=== PATIENT | female | born 1980 | race Caucasian/White ===

== ENCOUNTER 2020-05-28 08:24 | Emergency (ER) | payer SELFPAY ==
[2020-05-28 08:29] VITALS: BP 125/82; PULSE 87; RESP 18; TEMP 36.9; O2SAT 99; BMI 23.0
[2020-05-28 08:46] VITALS: PULSE 90; RESP 19; O2SAT 98
--- NOTE | 2020-05-28 08:46 | CTR_ITS ---
PROCEDURE INFORMATION: Exam: CT Abdomen And Pelvis Without Contrast Exam date and time: 05/28/2020 8:51 AM Age: 39 years old Clinical indication: Abdominal pain; Flank; Right; Additional info: Right flank pain, UTI TECHNIQUE: Imaging protocol: Computed tomography of the abdomen and pelvis without contrast. Radiation optimization: All CT scans at this facility use at least one of these dose optimization techniques: automated exposure control; mA and/or kV adjustment per patient size (includes targeted exams where dose is matched to clinical indication); or iterative reconstruction. COMPARISON: No relevant prior studies available. RADIATION DOSE METRICS: Total DLP (mGy-cm): 785.28 FINDINGS: Lungs: No acute findings within the included lung bases. Liver: The liver is enlarged, right lobe measuring approximately 23 cm in craniocaudad length. Smooth contours. Gallbladder and bile ducts: Normal. No calcified stones. No ductal dilation. Pancreas: Normal. No ductal dilation. Spleen: Splenomegaly, measuring 14.6 cm in AP diameter. Adrenal glands: Normal. No mass. Kidneys and ureters: 9 mm calculus at the right UVJ causing moderate to severe hydroureteronephrosis with stranding. Bilateral scattered punctate renal calculi. 20 mm fluid density cortical lesion at the left lateral midpole compatible with cyst though not further characterized without contrast. Stomach and bowel: Normal. No obstruction. No inflammatory changes appreciated. Appendix: No evidence of appendicitis. Intraperitoneal space: No free air. No significant fluid collection. Vasculature: No abdominal aortic aneurysm. Lymph nodes: Unremarkable. No enlarged lymph nodes. Urinary bladder: Bladder partially filled with mild circumferential wall thickening. No calculi within the bladder lumen. Reproductive: Unremarkable as visualized. Bones/joints: No acute or aggressive osseous lesion. Soft tissues: Unremarkable. CT/CT kidney stone [id number] IMPRESSION: 1. 9 mm obstructing distal right ureteral calculus at the UVJ causing moderate to severe hydroureteronephrosis with stranding. 2. Bilateral punctate intrarenal calculi. 3. Incidental 2 cm fluid density left renal lesion compatible with cyst though not further characterized without contrast. 4. Incidental note of hepatosplenomegaly, correlate clinically. Radiation Dose CTDIVOL = (mGy): DLP = 785.28 (mGy-cm)
--- NOTE | 2020-05-28 08:47 | W.ED.FEMALGU ---
HPI - Female Genitourinary General: Chief complaint: Urogenital-Female Stated complaint: Back Pain? Possible Kidney stone Time Seen by Provider: 05/28/20 08:27 History of Present Illness: HPI Narrative: Patient complains about right flank pain for the last 3 days. Did see primary care provider yesterday and diagnosed with a UTI and placed on Bactrim. Patient is been nauseated has had fever and chills just does not feel right she says. Had vaginal delivery 3 months ago. MD elicited complaint: dysuria and flank pain Onset (ago): day(s) Location of symptoms: flank Severity: moderate Female Urogenital Radiation: R Flank Severity scale (1-10): 3 Quality of pain: dull Consistency: constant Vaginal discharge: none Urinary symptoms: Flank Pain, Frequency and Hematuria Exacerbating factors: none Relieving factors: none Associated symptoms: Reports fevers/chills and nausea; Deny headache(s) Treatment prior to arrival: other (Bactrim) Review of Systems Const: Reports: malaise; Denies: fever(s), chills or body aches Eyes: Denies: change in vision or blurry vision ENMT: Denies: throat pain or nasal congestion Card: Denies: chest pain or dyspnea on exertion Resp: Denies: dyspnea, productive cough or non-productive cough GI: Reports: nausea : Reports: flank pain, urinary frequency and urinary urgency Musc: Denies: extremity pain Skin/Breast: Denies: rash Neuro: Denies: headache(s) Psych: Denies: anxiety or depression Adam/Lymph: Denies: easy bruising Physical Exam Const: COMMON NORMALS: no acute distress, average body habitus and patient oriented x3 HENMT: COMMON NORMALS: normocephalic HEAD & SCALP: normal to inspection and normocephalic FACE & SINUS: normal facial exam Eye: COMMON NORMALS: conjunctivae normal GENERAL EYE: appearance normal, both eyes and all related structures CONJUNCTIVA: Yes conjunctivae normal Neck/C-Spine: COMMON NORMALS: no JVD Chest: COMMONS NORMALS: normal inspection of the chest Resp: COMMON NORMALS: normal respiratory effort and clear to auscultation bilaterally AUSCULTATION: clear to auscultation bilaterally Cardio: COMMON NORMALS: no JVD, regular rate and regular rhythm RATE: regular rate RHYTHM: regular rhythm GI: COMMON NORMALS: Normal to inspection, nondistended, normoactive bowel sounds present : BLADDER/KIDNEY EXAM: Yes CVA tenderness on the right Back/Pelvis: GENERAL BACK: Yes CVA tenderness Extremity: COMMON NORMALS: normal to inspection and full ROM Neuro: COMMON NORMALS: patient oriented x3 Course Vital Signs: Vital signs: Vital Signs Temperature 98.5 F 05/28/20 08:29 Pulse Rate 75 05/28/20 10:30 Respiratory Rate 18 05/28/20 10:30 Blood Pressure 116/74 05/28/20 10:30 Pulse Oximetry 98 05/28/20 10:30 MDM - Female MDM Narrative: Medical decision making narrative: Have visit with Dr. Franco about lab results radiology results. Recommend and talk to urologist. Dr. South her local urologist town. Patient has been seen by Dr. Melendrez in [place] for kidney stone about 3 years ago. Called [facility] they are unwilling to talk to us unless patient is transferred ER to ER. Patient not willing go to the ER because of cost. Patient already scheduled appoint with Dr. Melendrez's office and has appointment at [phone] on Saturday. Discussed case with Dr. White. Dr. Franco was not available, agreed with plan based on patient's lab result presentation and treatment and response to treatment that it would be safe to have patient follow-up on Saturday with urologist in [place]. Patient is aware that they can follow back up here today or tomorrow if worsening symptoms or go to the ER [place]. Imaging studies will be sent with patient to present to the urologist on Saturday. Lab Data: Labs: Lab Results 05/28/20 05/28/20 05/28/20 Range/Units 08:53 08:58 08:58 WBC 9.8 (4.0-10.0) 10^3/ uL RBC 4.07 L (4.1-5.3) 10^6/u L Hgb 12.8 (11.5-15.3) g/dL Hct 37.3 (37.0-47.0) % MCV 91.6 (81-99) fL MCH 31.4 (28.0-34.0) pg MCHC 34.3 (30.0-36.0) g/dL RDW 12.1 (12.1-15.1) % Plt Count 205 (130-400) 10^3/c mm MPV 10.0 (7.4-10.4) fL Neut % (Auto) 86.6 % Lymph % (Auto) 7.1 % [place] % (Auto) 5.3 % Eos % (Auto) 0.3 % Baso % (Auto) 0.4 % Neut # (Auto) 8.46 H (1.8-7.7) 10^3/u L Lymph # (Auto) 0.7 L (0.8-4.8) 10^3/u L [place] # (Auto) 0.5 (0.2-0.9) 10^3/u L Eos # (Auto) 0.0 (0.0-0.8) 10^3/u L Baso # (Auto) 0.0 (0.0-0.1) 10^3/u L Nucleated RBC % (a uto) 0 % Nucleated RBCs # 0.0 /100WBC Sodium 132 L (136-145) mmol/L Potassium 4.4 (3.5-5.1) mmol/L Chloride 93 L (98-107) mmol/L Carbon Dioxide 25 (22-29) mmol/L Anion Gap 18.4 (5-19) BUN 9 (6-20) mg/dL Creatinine 0.5 (0.5-0.9) mg/dL GFR Calculation 136.6 H (90-130) mL/min Glucose 122 H (65-115) mg/dL Calculated Osmolal ity 274 L (285-295) mOsm/k g Lactate (0.5-2.2) mmol/L Calcium 9.7 (8.5-10.5) mg/dL Total Bilirubin 0.4 (0.15-1.2) mg/dL AST 14 (0-32) U/L ALT 18 (0-33) U/L Alkaline Phosphata se 47 (35-105) IU/L Total Protein 7.8 (6.6-8.7) g/dL Albumin 4.3 (3.5-5.2) g/dL Globulin 3.5 (1.3-4.6) g/dL Lipase 23 (13-60) U/L HCG, Qual (Negative) Urine Color Yellow (Yellow) Urine Appearance Clear (CLEAR) Urine pH 7 (5-7) Ur Specific Gravit y 1.010 (1.005-1.030) Urine Protein Neg (Negative) Urine Glucose (UA) Norm (Normal) Urine Ketones Negative (Negative) Urine Blood 2+ H (Negative) Urine Nitrate Negative (Negative) Urine Bilirubin Neg (Negative) Urine Urobilinogen Norm (Negative) mg/dL Ur Leukocyte Winsome ase Negative (Negative) Urine RBC 5-10 H (0-2) /hpf Urine WBC 0-4 H (0-5) /hpf Ur Squamous Epith Cells 0-4 H (0-5) /hpf Amorphous Sediment Not Reportable Urine Bacteria 1+ H (NONE) /hpf Urine Mucus 1+ /hpf 05/28/20 05/28/20 Range/Units 08:58 08:58 WBC (4.0-10.0) 10^3/ uL RBC (4.1-5.3) 10^6/u L Hgb (11.5-15.3) g/dL Hct (37.0-47.0) % MCV (81-99) fL MCH (28.0-34.0) pg MCHC (30.0-36.0) g/dL RDW (12.1-15.1) % Plt Count (130-400) 10^3/c mm MPV (7.4-10.4) fL Neut % (Auto) % Lymph % (Auto) % [place] % (Auto) % Eos % (Auto) % Baso % (Auto) % Neut # (Auto) (1.8-7.7) 10^3/u L Lymph # (Auto) (0.8-4.8) 10^3/u L [place] # (Auto) (0.2-0.9) 10^3/u L Eos # (Auto) (0.0-0.8) 10^3/u L Baso # (Auto) (0.0-0.1) 10^3/u L Nucleated RBC % (a uto) % Nucleated RBCs # /100WBC Sodium (136-145) mmol/L Potassium (3.5-5.1) mmol/L Chloride (98-107) mmol/L Carbon Dioxide (22-29) mmol/L Anion Gap (5-19) BUN (6-20) mg/dL Creatinine (0.5-0.9) mg/dL GFR Calculation (90-130) mL/min Glucose (65-115) mg/dL Calculated Osmolal ity (285-295) mOsm/k g Lactate 2.7 H (0.5-2.2) mmol/L Calcium (8.5-10.5) mg/dL Total Bilirubin (0.15-1.2) mg/dL AST (0-32) U/L ALT (0-33) U/L Alkaline Phosphata se (35-105) IU/L Total Protein (6.6-8.7) g/dL Albumin (3.5-5.2) g/dL Globulin (1.3-4.6) g/dL Lipase (13-60) U/L HCG, Qual Negative (Negative) Urine Color (Yellow) Urine Appearance (CLEAR) Urine pH (5-7) Ur Specific Gravit y (1.005-1.030) Urine Protein (Negative) Urine Glucose (UA) (Normal) Urine Ketones (Negative) Urine Blood (Negative) Urine Nitrate (Negative) Urine Bilirubin (Negative) Urine Urobilinogen (Negative) mg/dL Ur Leukocyte Winsome ase (Negative) Urine RBC (0-2) /hpf Urine WBC (0-5) /hpf Ur Squamous Epith Cells (0-5) /hpf Amorphous Sediment Urine Bacteria (NONE) /hpf Urine Mucus /hpf Discharge Plan Discharge Patient Disposition: Home Clinical Impression: Calculus of ureterovesical junction (UVJ) Condition: Stable Prescriptions: New hydrocodone-acetaminophen 5-325 mg tablet 1 tab PO TID PRN (Reason: pain) Qty: 14 RF: 0 Macrobid 100 mg capsule 100 mg PO BID 7 Days Qty: 14 RF: 0 Zofran 4 mg tablet 4 mg PO Q8H 3 Days Qty: 9 RF: 0 No Action Tylenol 325 mg Tablet 325 mg PO QID PRN (Reason: Pain) RF: 0 Bactrim 1 tab PO .COMPELX RF: 0 Bone Restorer Calcium 1 tab PO DAILY RF: 0 Momma Bear 1 tab PO DAILY RF: 0 Discharge Orders: Discharge ED (Routine); Ordered 05/28/20 Ordered By: Isaias Dukes Discharge Diet: Advance as tolerated Discharge Activity: Increase activity as tolerated Patient Instructions: Kidney Stones (ED), Opioid Safety Activity Restrictions/Additional Instructions: Follow-up with medical provider as directed. Take medications as prescribed. Return to the ER or your medical provider if condition worsens. Please read and understand discharge instructions. If any questions ask please. Keep appointment at [phone] with urologist as scheduled on Saturday morning if worsening symptoms please return to the ER. Coding Level of Care Code ED Mark[employer] Devices Assembler for Michelle Fwd Exam Comprehensive
[2020-05-28] MEDS: ondansetron 2 mg/ML SDV 2 mL 4 MG IVP (09:09)
[2020-05-28] MEDS: sodium chloride 0.9% 1,000 ML 999 ML IV (09:10)
[2020-05-28] MEDS: ketorolac 30 mg/mL INJ IVP (09:23)
[2020-05-28 09:29] LABS: Basophils % 0.4 %; Eosinophils % 0.3 %; Hematocrit 37.3 % (37.0-47.0); Hemoglobin 12.8 g/dL (11.5-15.3); Lymphocytes # 0.7 10^3/uL (0.8-4.8); Lymphocytes % 7.1 %; Mean Corpuscular HGB Conc 34.3 g/dL (30.0-36.0); Mean Corpuscular Hemoglobin 31.4 pg (28.0-34.0); Mean Corpuscular Volume 91.6 fL (81-99); Monocytes # 0.5 10^3/uL (0.2-0.9); Monocytes % 5.3 %; Neutrophils # 8.46 10^3/uL (1.8-7.7); Neutrophils % 86.6 %; Nucleated Red Blood Cells % 0 %; Platelet Count 205 10^3/cmm (130-400); Red Blood Count 4.07 10^6/uL (4.1-5.3); Red Cell Distribution Width 12.1 % (12.1-15.1); White Blood Count 9.8 10^3/uL (4.0-10.0)
[2020-05-28 09:37] VITALS: PULSE 89; RESP 19; O2SAT 100
[2020-05-28 09:43] LABS: HCG, Serum Qual Negative (Negative)
[2020-05-28 09:51] LABS: Alanine Aminotransferase 18 U/L (0-33); Albumin Level 4.3 g/dL (3.5-5.2); Alkaline Phosphatase 47 IU/L (35-105); Anion Gap 18.4 (5-19); Aspartate Amino Transferase 14 U/L (0-32); Blood Urea Nitrogen 9 mg/dL (6-20); Calcium 9.7 mg/dL (8.5-10.5); Carbon Dioxide 25 mmol/L (22-29); Chloride 93 mmol/L (98-107); Creatinine Clr Calc Pharmacy 150.2403; Globulin 3.5 g/dL (1.3-4.6); Glomerular Filtration Rate 136.6 mL/min (90-130); Glucose 122 mg/dL (65-115); Lipase 23 U/L (13-60); Osmolality Calculated 274 mOsm/kg (285-295); Potassium 4.4 mmol/L (3.5-5.1); Sodium 132 mmol/L (136-145); Total Bilirubin 0.4 mg/dL (0.15-1.2); Total Protein 7.8 g/dL (6.6-8.7)
[2020-05-28 09:52] LABS: Lactate (Lactic Acid level) 2.7 mmol/L (0.5-2.2)
[2020-05-28 09:56] LABS: Urine Appearance Clear (CLEAR); Urine Color Yellow (Yellow)
[2020-05-28 09:57] LABS: Add Urine Microscopic? YES; Bilirubin Urine Neg (Negative); Blood Urine 2+ (Negative); Glucose Urine UA Norm (Normal); Ketones Urine Negative (Negative); Leukocyte Esterase Urine Negative (Negative); Nitrate Urine Negative (Negative); Protein Urine Neg (Negative); Urobilinogen Urine Norm (Negative); pH Urine 7 (5-7)
[2020-05-28 09:58] LABS: WBC Urine 0-4 /hpf (0-5)
[2020-05-28 09:59] LABS: Add Urine Culture? No; Bacteria Urine 1+ /hpf; Mucus Urine 1+ /hpf; Squamous Epithelial Cell Urine 0-4 /hpf (0-5)
[2020-05-28 10:30] VITALS: BP 116/74; PULSE 75; RESP 18; O2SAT 98
[2020-05-28] MEDS: cefTRIAXone 1,000 MG in sodium chloride 0.9% (plus) 50 ML 100 MG IV (11:13)
--- NOTE | 2020-05-28 11:32 | XRR_ITS ---
PROCEDURE INFORMATION: Exam: XR Abdomen Exam date and time: 05/28/2020 11:45 AM Age: 39 years old Clinical indication: Abdominal pain; Flank; Right; Additional info: Ruvj stone, send copy with PT TECHNIQUE: Imaging protocol: XR of the abdomen. Views: Frontal supine view of the abdomen. 1 View. COMPARISON: CT kidney stone [id number] 05/28/2020 10:07 AM FINDINGS: Gastrointestinal tract: Normal. No bowel dilation. Vasculature: 9 mm right UVJ calculus appears unchanged in position. Incidental bilateral pelvic phleboliths. Bones/joints: Unremarkable. XR/XR KUB portable [id number] IMPRESSION: Known 9 mm right UVJ calculus appears unchanged in position in comparison to stone CT performed earlier this morning.
[2020-05-28 11:45] VITALS: PULSE 84; RESP 18; O2SAT 97
== END 2020-05-28 12:14 | disposition home or self-care (01) ==
PROVIDERS: Emergency Provider Nurse Practitioner Family
DX: N20.1 Calculus of ureter (principal)
CPT/HCPCS: 74018; 74176; 80053; 81001; 83605; 83690; 84703; 85025; 96365; 96375; 99284; J0696; J1885; J2405; J7030